=== PATIENT | female | born 1925 | race Caucasian/White ===

== ENCOUNTER 2016-06-13 11:11 | Emergency (ER) | payer OTHER, MEDICARE ==
[2016-06-13 11:57] VITALS: RESP 18
[2016-06-13] MEDS ORDERED: NS 500 ML IV ONE (12:27)
--- NOTE | 2016-06-13 12:31 | UCPHY ---
H & P Patient Type: Established Chief Complaint Nursing Narrative: c/o Cough/congestion x 1 wk Time Seen by Provider: 06/13/16 12:08 HPI/ROS: CHIEF COMPLAINT: Cough, congestion worsening over the last week HISTORY OF PRESENT ILLNESS: 89-year-old female presents complaining of worsening head cold, headache, cough, sputum production. Patient developed a sore throat a week ago. For several days she had nasal congestion and a runny nose with a sore throat. Over the last 2 days she has had increased nasal congestion, nasal discharge, headache, cough productive of sputum. No fever. No vomiting. No chest pain. No shortness of breath. No abdominal pain, nausea, vomiting. REVIEW OF SYSTEMS: Aside from elements discussed in the HPI, a comprehensive 10-point review of systems was reviewed and is negative. PAST MEDICAL HISTORY: DVT. Prior history of hypertension for which she no longer takes med secondary to losing a significant amount of weight. SOCIAL HISTORY: Just returned from [place]. VITAL SIGNS Reviewed by me. GENERAL: Pleasant, elderly female. Resting comfortably in no respiratory distress. HEENT: Atraumatic. Eyes: No icterus, no injection. TMs clear bilaterally. Mild sinus tenderness to percussion. Mouth: moist mucous membranes. No erythema or lesions. Neck: supple with no adenopathy. Negative Kernig's, negative Brudzinski's. No meningismus. Supple. LUNGS: Coarse breath sounds throughout. No wheezing or rhonchi. CARDIAC: Regular rate and rhythm, prominent systolic murmur. ABDOMEN: Soft, nontender, nondistended, bowel sounds normal. BACK: No CVA tenderness. EXTREMITIES: No trauma. No edema. Range of motion is normal throughout. NEURO: Alert and oriented, grossly nonfocal. SKIN: Warm and dry, no rash. PSYCHIATRIC: Normal mentation, no agitation. - Personal History Current Tetanus Diphtheria and Acellular Pertussis (TDAP): Yes - Medical/Surgical History Other PMH: Vericose veins. Blood clot lower leg. left knee replacement. back surgery for spinal stenosis. hammer toe surgery 2016. surgery to hands for contractures - Family History Significant Family History: No pertinent family hx - Social History Smoking Status: Never smoked Constitutional: Initial Vital Signs Temperature (C) 36.6 C 06/13/16 11:55 Heart Rate 84 06/13/16 11:55 Respiratory Rate 18 03/27/17 11:55 Blood Pressure 123/62 H 06/13/16 11:55 O2 Sat (%) 95 06/13/16 11:55 O2 Delivery Mode Room Air Allergies/Adverse Reactions: codeine Allergy (Verified 05/13/15 19:55) Home Medications: Medication Instructions Recorded Amoxicillin/Clavulanate Pot 875 mg PO BID #14 tab 06/13/16 [Augmentin 875 MG TAB (*)] Medical Decision Making ED Course/Re-evaluation: Patient's blood pressure fluctuated to systolic of 95. IV was placed. Patient received 500 cc of normal saline. 89-year-old female presenting with cold which has been worsening over the last 2 days. No history of fever. However patient's blood pressure shortly after arrival to urgent care was 95 systolic. Evaluation for sepsis was undertaken. No evidence of sepsis. Patient received normal saline. Blood pressure actually returned to its baseline which is somewhat hypertensive. Patient complains of a mild to moderate headache. Suspect this is related to significant sinus congestion. She was discharged with instructions regarding decongestants and was placed on Augmentin. She has with her family. She looks well, very conversant, sharp, and comfortable with the plan of going home. No chest pain. Differential Diagnosis: Differential diagnosis of the patient's symptom complex was considered including but not limited to viral upper respiratory infection, sinusitis, bronchitis, pharyngitis, pneumonia, lower respiratory infection, and bronchospasm. - Data Points Laboratory Results: Laboratory Results 06/13/16 13:00 06/13/16 13:00 06/13/16 06/13/16 06/13/16 13:00 13:00 13:00 WBC 4.59 10^3/uL 10^3/uL (3.80-9.50) RBC 4.90 10^6/uL 10^6/uL (4.18-5.33) Hgb 14.7 g/dL g/dL (12.6-16.3) Hct 44.2 % % (38.0-47.0) MCV 90.2 fL fL (81.5-99.8) MCH 30.0 pg pg (27.9-34.1) MCHC 33.3 g/dL g/dL (32.4-36.7) RDW 14.4 % % (11.5-15.2) Plt Count 189 10^3/uL 10^3/uL (150-400) MPV 9.8 fL fL (8.7-11.7) Neut % (Auto) 66.5 % % (39.3-74.2) Lymph % (Auto) 21.4 % % (15.0-45.0) [place] % (Auto) 10.5 % % (4.5-13.0) Eos % (Auto) 0.7 % % (0.6-7.6) Baso % (Auto) 0.7 % % (0.3-1.7) Nucleat RBC Rel Count 0.0 % % (0.0-0.2) Absolute Neuts (auto) 3.06 10^3/uL 10^3/uL (1.70-6.50) Absolute Lymphs (auto) 0.98 10^3/uL L 10^3/uL (1.00-3.00) Absolute Monos (auto) 0.48 10^3/uL 10^3/uL (0.30-0.80) Absolute Eos (auto) 0.03 10^3/uL 10^3/uL (0.03-0.40) Absolute Basos (auto) 0.03 10^3/uL 10^3/uL (0.02-0.10) Absolute Nucleated RBC 0.00 10^3/uL 10^3/uL (0-0.01) Immature Gran % 0.2 % % (0.0-1.1) Immature Gran # 0.01 10^3/uL 10^3/uL (0.00-0.10) VBG Lactic Acid 1.0 mmol/L mmol/L (0.7-2.1) Sodium 141 mEq/L mEq/L (134-144) Potassium 4.3 mEq/L mEq/L (3.5-5.2) Chloride 102 mEq/L mEq/L (97-110) Carbon Dioxide 24 mEq/l mEq/l (22-31) Anion Gap 15 mEq/L mEq/L (8-16) BUN 17 mg/dL mg/dL (7-23) Creatinine 0.8 mg/dL mg/dL (0.6-1.0) Estimated GFR > 60 Glucose 84 mg/dL mg/dL (70-100) Calcium 9.3 mg/dL mg/dL (8.5-10.4) Medications Given: Discontinued Medications Sodium Chloride (Ns) 500 mls @ 0 mls/hr IV ONCE ONE PRN Reason: As Directed Stop: 06/13/16 12:28 Last Admin: 06/13/16 13:19 Dose: 500 mls Departure - Departure Disposition: Home, Routine, Self-Care Clinical Impression: Bronchitis Upper respiratory infection Qualifiers: URI type: unspecified URI Qualified Code(s): J06.9 - Acute upper respiratory infection, unspecified Sinusitis Qualifiers: Sinusitis location: other Chronicity: acute Recurrence: non-recurrent Qualified Code(s): J01.80 - Other acute sinusitis Condition: Good Instructions: Sinusitis (ED), Acute Bronchitis (ED) Additional Instructions: Please take the antibiotics as directed. Augmentin 875 mg 2 times a day for 7 days. Drink plenty of fluid. Get plenty of rest. Follow up with her primary care physician if not improving as in the next several days. Referrals: Ada Bejarano MD [Primary Care Provider] - As per Instructions Prescriptions: Amoxicillin/Clavulanate Pot [Augmentin 875 MG TAB (*)] 875 mg PO BID #14 tab - PQRS PQRS Measurement: 134: Depression screening and followup, PRIME MD-PHQ2 (12 years and older) Over the last 2 weeks, how often have you been bothered by any of the following problems? 1. Feeling down, depressed, or hopeless? 2. Little interest or pleasure in doing things? Patient answered no to both 1 and 2 130: Documentation of medications. Reviewed all patient medications, doses, route and frequency. Patient takes no regular medications. 226: Do you smoke? No. 47: 65 and older: Advanced care planning. Patient designates surrogate decision maker as daughter. 51: 18 years old and older with diagnosis of COPD, spirometry performance. Patient has no history of COPD 52: 18 years old and older with COPD and symptoms of COPD or FEV1<60% predicted prescribed a B Agonist. Patient has no history of COPD
[2016-06-13 13:05] LABS: % IMMATURE GRANULYOCYTES 0.2 % (0.0-1.1); ABSOLUTE IMMATURE GRANULOCYTES 0.01 10^3/uL (0.00-0.10); ADD DIFF? NO; ADD MORPH? NO; ADD SCAN? NO; ATYPICAL LYMPHOCYTE FLAG 20 (0-99); FRAGMENT RBC FLAG 0 (0-99); HEMATOCRIT 44.2 % (38.0-47.0); HEMOGLOBIN 14.7 g/dL (12.6-16.3); LEFT SHIFT FLG 0 (0-99); LIPEMIA HEMOLYSIS FLAG 80 (0-99); MEAN CELL HEMOGLOBIN CONCENTR. 33.3 g/dL (32.4-36.7); MEAN CELL VOLUME 90.2 fL (81.5-99.8); MEAN PLATELET VOLUME 9.8 fL (8.7-11.7); PLATELET CLUMPS FLAG 0 (0-99); PLATELET COUNT 189 10^3/uL (150-400); RED CELL DISTRIBUTION WIDTH 14.4 % (11.5-15.2)
[2016-06-13 13:25] LABS: ANION GAP 15 mEq/L (8-16); CALCIUM 9.3 mg/dL (8.5-10.4); CARBON DIOXIDE 24 mEq/l (22-31); CHLORIDE 102 mEq/L (97-110); CREATININE 0.8 mg/dL (0.6-1.0); GLOMERULAR FILTRATION RATE > 60; GLUCOSE 84 mg/dL (70-100); POTASSIUM 4.3 mEq/L (3.5-5.2); SODIUM 141 mEq/L (134-144)
[2016-06-13 14:02] VITALS: BP 178/94; PULSE 81; TEMP 98.2; O2SAT 94
== END 2016-06-13 14:05 | disposition home or self-care (01) ==
LOC: CED 11:11
DX: J40 Bronchitis, not specified as acute or chronic (principal); J06.9 Acute upper respiratory infection, unspecified; J01.80 Other acute sinusitis
CPT/HCPCS: 71020-PO; 80048-PO; 83605-PO; 85025-PO; 96360-PO; 99214-PO; G0463-PO

== ENCOUNTER → 2016-07-04 | Outpatient (CLI) | payer OTHER, MEDICARE | LOC: BHCLAF 11:30 | PROVIDERS: ATTEND Internal Medicine | DX: I35.0 Nonrheumatic aortic (valve) stenosis (principal); I71.9 Aortic aneurysm of unspecified site, without rupture | CPT/HCPCS: 93306-PO ==

== ENCOUNTER → 2017-04-07 | Outpatient (CLI) | payer OTHER, MEDICARE | LOC: FIMAGING 14:35 | PROVIDERS: ATTEND Internal Medicine Interventional Cardiology | DX: J90 Pleural effusion, not elsewhere classified (principal) ==

== ENCOUNTER → 2017-04-17 | Outpatient (CLI) | payer OTHER, MEDICARE | LOC: BHFA 15:30 | PROVIDERS: ATTEND Internal Medicine Cardiovascular Disease | DX: I48.91 Unspecified atrial fibrillation (principal); I35.9 Nonrheumatic aortic valve disorder, unspecified ==

== ENCOUNTER 2017-07-17 13:05 | Day surgery (SDC) | payer OTHER, MEDICARE ==
[2017-07-17] MEDS ORDERED: ATROPINE SULFATE 1 MG/10 ML SYR ONE (13:24)
--- NOTE | 2017-07-17 13:29 | PDHPUP ---
History & Physical Update H&P update statement: This history and physical update is based on an assessment of the patient which was completed after admission or registration (within 24 hours), but prior to the surgery/procedure. H&P update: H&P reviewed & patient examined, no change in patient's condition since H&P completed
[2017-07-17] MEDS ORDERED: DOBUTamine 500 MG in D5W 250 ML IV ONE (13:30)
--- NOTE | 2017-07-17 15:17 | CPR ---
[f rep st] NONINVASIVE CARDIAC PROCEDURE REPORT DATE OF PROCEDURE: 07/17/2017 INDICATIONS FOR PROCEDURE: Shortness of breath, low output, severe . PROCEDURE: As per [facility] Dobutamine echo protocol, the patient was brought to [facility] where the patient's baseline echocardiographic images were obtained, which showed an EF of 65% with g lobal LVH. There was a heavily calcified aortic valve measuring at 0.9 cm2 with a peak velocity of 2 .7 cm/sec. The patient was started on a dobutamine infusion of 10 mcg/kg per minute which was increa sed by 10 mcg every 2 minutes to a total of 40 mcg/kg per minute. The patient's gradient increased f rom 2.7 cm/second to tops of 4.1 cm/sec at 40 mcg/kg per minute. The LV was hyperdynamic at this poi nt, the EF 70%. The patient's baseline EKG was atrial fibrillation with occasional pacing spikes and increased from a baseline heart rate 62-75. Blood pressure went from 160/80 to 175/90. At this wes e, the fusion was shut off. The patient tolerated the procedure well with no issues. IMPRESSION: Severe aortic stenosis confirmed by dobutamine infusion with a peak velocity 2.7 cm/sec, increasing to 4.1 cm/second. The patient's valve area at baseline was measured to be 0.9 cm2. Give n the patient's age, overall frailty, we will continue the patient's workup for potential transcathet er aortic valve replacement in the near future /[id number]/MODL
--- NOTE | 2017-07-24 16:24 | ECHO ---
[email or web address] [address] [address] Main: [phone] Fax: Transthoracic Echocardiogram Name: KATHY MUÑIZ MR#: [id number] Study Date: 07/17/2017 Study Time: 01:33 PM Date of : 1925 Age: 89 year(s) Height: 152.4 cm (60 in.) Weight: 63.96 kg (141 lb.) BSA: 1.61 m2 Gender: Female Examination: Stress Echo Indication: SOB/fatigue/hx pacer/atrial fibrillation Image Quality: Contrast: Requested by: Rashard Law BP: / Heart Rate: Rhythm: Indication: SOB/fatigue/hx pacer/atrial fibrillation Procedure Staff Joint Cutter Machine: Briseyda Young RDCS Reading Physician: Rashard Law MD Requesting Provider: Conclusions: Patient has severe by dobutamine stress echo. Please see dictated report for further details. Baseline - 2.76 m/s AV max PG 30mmHG AV mean PG 19mmHG 10 MCG - 3.18 m/s AV max PG 41mmHG AV mean PG 24mmHG 20 MCG 3.45 m/s AV max PG 48mmHG AV mean PG 27mmHG 30 MCG 3.84 m/s AV max PG 59mmHG AV mean PG 35mmHG 40 MCG 4.13 m/s AV max PG 68mmHG AV mean PG 40mmHG . Measurements: Chambers Valvular Assessment AV/MV Valvular Assessment TV/PV Normal Normal Normal Name Value Range Name Value Range Name Value Range LVOTd 2.1 cm 2.1 cm mm AV meanP mmHg ( - ) TR Vmax: 3.07 mm/s ( - ) SHYAM (VTI): 0.8 cm ( - ) TR PGmax: 38 mmHg ( - ) syst. PAP: 43 mmHg ( - ) Continued Measurements: Valvular Assessment TV/PV Name Value CVP (est.): 5 mmHg Findings: Left Ventricle: Normal global systolic LV function. Right Ventricle: There is a pacemaker lead noted in the right ventricle. Aortic Valve: Mild aortic valve regurgitation is present. Tricuspid Valve: Patient: KATHY MUÑIZ Study Date: 07/17/2017 Page 1 of 2 01:33 PM Mild tricuspid regurgitation is present. RVSP is 43mmHG.. Exam Comments: Patient has severe by dobutamine stress echo. Please see dictated report for further details. Baseline - 2.76 m/s AV max PG 30mmHG AV mean PG 19mmHG 10 MCG - 3.18 m/s AV max PG 41mmHG AV mean PG 24mmHG 20 MCG 3.45 m/s AV max PG 48mmHG AV mean PG 27mmHG 30 MCG 3.84 m/s AV max PG 59mmHG AV mean PG 35mmHG 40 MCG 4.13 m/s AV max PG 68mmHG AV mean PG 40mmHG . (No Signature Object) Patient: KATHY MUÑIZ Study Date: 07/17/2017 Page 2 of 2 01:33 PM [id number]
== END 2017-07-17 15:05 | disposition home or self-care (01) ==
LOC: FCATH 13:05 → EDSTATUS 13:30 → FCATH 15:05
PROVIDERS: ATTEND Internal Medicine Cardiovascular Disease
DX: I35.0 Nonrheumatic aortic (valve) stenosis (principal); I48.91 Unspecified atrial fibrillation; I10 Essential (primary) hypertension
CPT/HCPCS: J0461; J1250

== ENCOUNTER 2017-08-09 06:08 | Observation (INO) | payer OTHER, MEDICARE ==
[2017-08-09] MEDS ORDERED: DIAZEPAM 5 MG TAB PO ONE (06:13)
[2017-08-09] MEDS ORDERED: NS 1,000 ML IV ONE (06:13)
[2017-08-09] MEDS ORDERED: ASPIRIN EC 325 MG TAB PO ONE (06:13)
[2017-08-09] MEDS ORDERED: FAMOTIDINE 20 MG TAB PO ONE (06:13)
[2017-08-09] MEDS ORDERED: diphenhydrAMINE 25 MG CAP PO ONE (06:13)
--- NOTE | 2017-08-09 06:39 | CPEKG ---
Heart Rate: 71 RR Interval: 845 P-R Interval: 203 QRSD Interval: 98 QT Interval: 372 QTC Interval: 405 QRS Bradford: -36 T Wave Bradford: 105 EKG Severity - ABNORMAL ECG - EKG Impression: ATRIAL-PACED RHYTHM EKG Impression: LEFT AXIS DEVIATION EKG Impression: LVH WITH SECONDARY REPOLARIZATION ABNORMALITY Electronically Signed By: Everton Bernstein 10-Aug-2017 10:49:02
[2017-08-09] MEDS ORDERED: CLOPIDOGREL BISULFATE 75 MG TAB PO STA (06:43)
--- NOTE | 2017-08-09 06:46 | PDHPUP ---
History & Physical Update H&P update statement: This history and physical update is based on an assessment of the patient which was completed after admission or registration (within 24 hours), but prior to the surgery/procedure. H&P update: H&P reviewed & patient examined, no change in patient's condition since H&P completed, changes noted
--- NOTE | 2017-08-09 06:46 | PDPROPOC ---
Sedation Plan of Care Sedation Plan of Care: mental status noted, patient educated of risks, benefits , alternatives, patient can tolerate sedation ASA Classification: ASA 2 Planned drugs: fentanyl, midazolam Mallampati Score: Class 2 Mallampati Reference Image: Patient passed 3-3-2 rule?: Yes
[2017-08-09] MEDS ORDERED: IOPAMIDOL (ISOVUE-370) 150 ML BTL IV ONE ×3 (06:52→13:17)
[2017-08-09] MEDS ORDERED: LIDOCAINE 1% 300 MG/30 ML SDV ONE (06:52)
[2017-08-09 06:57] LABS: PLATELET COUNT 147 10^3/uL (150-400)
[2017-08-09 07:12] LABS: INR 1.03 (0.83-1.16); PROTIME(PATIENT) 13.7 SEC (12.0-15.0)
[2017-08-09] MEDS ORDERED: MIDAZOLAM 2 MG/2 ML VIAL ONE ×2 (07:13→11:33)
[2017-08-09] MEDS ORDERED: fentaNYL 100 MCG/2 ML INJ ONE ×2 (07:13→11:33)
[2017-08-09] MEDS ORDERED: hydrALAZINE 20 MG/ML VIAL ONE (07:58)
[2017-08-09] MEDS ORDERED: BIVALIRUDIN 250 MG/5 ML VIAL IV ONE (08:18)
[2017-08-09] MEDS ORDERED: NITROGLYCERIN 1,500 MCG/15 ML VIAL MISC ONE (08:30)
[2017-08-09] MEDS ORDERED: NITROGLYCERIN 0.4 MG BTL SL PRN (09:20)
[2017-08-09] MEDS ORDERED: ONDANSETRON 4 MG/2 ML VIAL IVP PRN (09:20)
[2017-08-09] MEDS ORDERED: ATROPINE SULFATE 1 MG/10 ML SYR IVP PRN (09:20)
[2017-08-09] MEDS ORDERED: traMADol 50 MG TAB PO ONE (10:00)
--- NOTE | 2017-08-09 10:13 | CPIP ---
[f rep st] INVASIVE CARDIAC PROCEDURE DATE OF PROCEDURE: 08/09/2017 INDICATION FOR PROCEDURE: Critical aortic stenosis, pre TAVR catheterization. PROCEDURE: 1. Nonselective left groin sheathogram. 2. 5-Liberian sheath left common femoral vein. 3. Cochran-Lisset catheter with a right heart catheterization. 4. Bilateral selective coronary angiography. 5. iFR of prox mid LAD. 6. iFR of prox mid left circumflex artery. Briefly, this is an 89-year-old female with history of critical aortic stenosis with evidence of low gradient low output as documented by dobutamine stress echo. The patient was evaluated by CT surgery and deemed to be a high-risk candidate for open AVR and was consented for left heart catheterization with anticipation of transfemoral TAVR. After informed consent was obtained, the patient was brought to [facility] where the patient's left groin was prepped in sterile fashion using lidocaine. A short 6-Liberian sheath to the left common femoral artery verified angiographically. A 5-Liberian sheath was placed in the left common femoral vein. Cochran-Lisset catheter was advanced through the 5-Liberian sheath. RA pressure was measured to be mean of 8, A-wave 10, V-wave 11, RV pressure systolic 4, diastolic 4 with an end of 11. PA pressure systolic ____, diastolic 16 with a mean of 26, wedge pressure was mean at 13, A-wave 16, V-wave 19, cardiac output was measured to be 3.1 by Calin with an index of 1.9. AO sat was 92%. PA sat was 63%. Cochran-Lisset catheter was then removed. At this time a JL4 catheter was advanced to the left coronary artery. Images of the left coronary artery revealed normal ostial left main. Distal left main appeared to have a calcified area of the takeoff of the ostial LAD and ostial left circumflex artery. Just distal to this takeoff of the LAD there was a small diagonal artery with a 70% ostial pinch followed by 50% mid LAD disease. There was a much larger diagonal artery coming off the midportion of the LAD which was healthy and free of disease. Distally, the LAD appeared to be healthy and free of disease. The left circumflex artery had what appeared to be some calcification in its ostium followed by an area of 60% disease in its proximal aspect. Distally, the circumflex terminated into an AV groove circ and a much larger marginal 1 artery which had mild 30% disease. After these images were obtained the JL4 catheter was removed. The JR4 catheter was advanced to the right coronary artery. Images of the right coronary artery revealed normal ostial RCA. There was heavy calcium in the proximal mid RCA which was widely patent. Distally, the RPD and RPL appeared to be widely patent as well. After the images were obtained, the JR4 catheter was removed. A pigtail catheter was advanced to the ascending aorta. Abdominal aortogram shows showed mildly aneurysmal distal ascending aorta. The bilateral common external and internal iliac arteries appear to be patent. The PERSONAL INVESTMENT ADVISER bilaterally appeared to be widely patent as well. After the images were obtained, the pigtail catheter was removed over the 0.035 wire. INTERVENTION REPORT: At this time Dr. Stiles from CT surgery was called over to look at the images with myself. Given the patient's overall extreme frailty as well as high risk nature for AVR and her refusal to have any open-heart surgery , we decided that we would proceed with interrogation of the coronary vessels with iFR and plan for potential PCI if needed. The patient had been administered 600 mg of Plavix as well as started on Angiomax bolus drip. The 6- Liberian sheath in the left groin was upsized to an 8-Liberian 25 cm sheath given the tortuosity in the iliac vessels on the left side. An EBU 3.5 guide catheter , 8-Liberian was advanced to the left coronary artery after being zeroed in the aorta. An iFR wire was then advanced and zeroed again proximal to the lesion in the left main. An IFR wire was then advanced through the ostia of the LAD into the mid LAD past both areas of concern in the LAD, iFR was obtained. iFR was 0.95. 200 mcg nitroglycerin was then administered IC and iFR was retaken and it was once again 0.97. The wire was then pulled back and placed into the left circumflex artery past the lesion, the ostial area as well as the proximal mid lesion and IFRT was once again obtained. This showed an iFR of 1.0 and 0.98 at separate instances. At this time, the wire was removed. The guide catheter was removed over an 0.035 wire. The left groin was replaced with short 8-Liberian sheath. The patient tolerated the procedure well with no complications. IMPRESSION: 1. Moderate coronary artery disease, namely in the form of 50% distal left main /50% ostial LAD with an additional 50% lesion in the mid LAD and 70% ostial diagonal artery. 2. 50% to 60% mid left circumflex artery with calcification of the left circumflex ostium. 3. Patent RCA 4. Mild pulmonary hypertension with reduced cardiac output. 5. Both LAD and LCX were interrogated iFR and found to be non-critical PLAN: The patient's coronary artery disease was verified by IFRT to be noncritical as her iFR was ranged from 0.95 to 1.0 in both the left circumflex artery and LAD. She does have significant disease of a small diagonal artery. However, given the small size of the vessel no intervention would be warranted on this area. At this time we will obtain CTA of the chest, abdomen, pelvis, and have the patient scheduled for a carotid ultrasound in anticipation for eventual transfemoral TAVR. /[id number]/MODL MTDD
[2017-08-09] MEDS ORDERED: traMADol 50 MG TAB PO PRN (15:16)
[2017-08-09] MEDS: METOPROLOL TARTRATE 50 MG TAB PO SCH (19:49)
--- NOTE | 2017-08-10 09:56 | ASDISCHSUM ---
Discharge Information Plan Status:Home with No Needs Medically Cleared to Leave:08/10/2017 Discharge Date:08/10/2017 CM D/C Disposition:Home, Routine, Self-Care ADT D/C Disposition:Home, Routine, Self-Care Projected Discharge Date:08/10/2017 Transportation at D/C:Family Discharge Delay Reason: Follow-Up Date:08/10/2017 Discharge Slot: Final Diagnosis: Placement Information Patient Contact Information Contact Name:CHELY Relationship:Daughter Address:[address] Work Phone: City:[place] Alternate Phone: State/Zip Code:[place] [address] Email: Financial Information Financial Class:Medicare Primary Plan Desc:MEDICARE OUTPATIENT Primary Plan Number:[id number] Secondary Plan Desc:[employer]/MDR SUPPLEMENT Secondary Plan Number:[id number] Assessment Information LACE LACE Length of stay for Answers: Less than 1 day current admission Acuity / Level of Answers: No Care: Did the patient have an inpatient admission? Comorbidities - select Answers: Coronary Artery Disease all that apply Other Notes: mild pulmonary HTN, # of Emergency department Answers: 0 visits in the last 6 months Score: 3 Date Signed: 08/10/2017 09:53 AM Electronically Signed By:Pura Zamudio RN Intervention Information
[2017-08-10] MEDS ORDERED: DIGOXIN 125 MCG TAB PO SCH (10:00)
[2017-08-10] MEDS: METOPROLOL TARTRATE 50 MG TAB PO SCH (10:03)
[2017-08-10 10:04] VITALS: BP 133/74
--- NOTE | 2017-08-10 12:38 | GDS ---
[f rep st] DISCHARGE SUMMARY DISCHARGE DIAGNOSES: 1. Severe aortic stenosis with low gradient and low output. 2. History of paroxysmal atrial fibrillation. 3. History of sick sinus syndrome status post permanent pacemaker. 4. History of supraventricular tachycardia. 5. History of chronic diastolic congestive heart failure. PROCEDURES: 1. 08/09/17, left heart catheterization, which showed moderate coronary artery disease, namely in th e form of 50% distal left main, 50% ostial LAD with an additional 50% lesion in the mid LAD, and a 70 % ostial diagonal artery stenosis, 50%-60% mid left circumflex artery calcification in the ostium, pa tent RCA. Both the LAD and circumflex were interrogated by iFR and were found to be noncritical. 2. 08/09/2017, abdomen and pelvis CTA, which showed minimally calcified widely patent aortoiliac ves sels. There was incidental left perinephric fluid collection, not associated with any changes in the adjacent renal cortex. Incidental subcentimeter cyst within the pancreas. 3. 08/09/2017, chest CT that shows moderate cardiomegaly with calcification of the aortic valvular l eaflets. Three-vessel coronary artery calcification. Normal caliber thoracic aorta. There is a sma ll right pleural effusion, which appears more loculated in comparison to previous chest radiograph. 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 There is a scattered thin-walled pulmonary parenchymal cyst and mild upper lobe reticular opacities. This may be suggestive of mild interstitial lung disease versus emp hysema. 4. 08/09/2017, carotid Dopplers, which showed moderate right and mild left carotid bulb, proximal in ternal carotid artery with atherosclerotic calcification with no evidence of significant stenosis. PHYSICIANS: Dr. Law. BRIEF HISTORY: Please see dictated H and P from Dr. Law for complete details. In brief, the pat ient is an 89-year-old female with a history of sick sinus syndrome status post permanent pacemaker, PAS, who has been noting worsening fatigue and dyspnea. Her echo showed very heavily calcified aorti c valve with only moderate gradient. On dobutamine stress echo, she was found to have severe with low gradient and low output. She is therefore being evaluated for TAVR. She has been turned down f or surgical aortic valve replacement. Her cardiac catheterization shows coronary artery disease, not needing intervention at this point. All her other pre TAVR studies were completed. On day of disch arge, the patient denies any significant groin pain. She has not been noting any chest pain or dyspn ea at rest. PHYSICAL EXAM: VITAL SIGNS: On day of discharge, blood pressure 133/74, heart rate of 73, respirati ons 14, O2 saturation 95% on room air, temp of 97.4 degrees Fahrenheit. GENERAL: She is a very plea juan elderly female in no apparent distress. HEENT: Normocephalic, atraumatic. Eyes are without sc leral icterus. HEART: Regular rate and rhythm with a harsh holosystolic murmur. LUNGS: Clear. EX TREMITIES: Left groin site with ecchymosis, but no hematoma, no bruit. She has 1+ PT and DP pulses bilaterally. CBC with WBC 6.38, hemoglobin 11, hematocrit 35.3, platelet count of 147. BMP with sodium 145, potas sium 4.5, chloride 110, CO2 23, BUN 36, creatinine 1.1, glucose 92. Total cholesterol of 181, LDL of 98, HDL of 61, triglycerides of 112. HOSPITAL COURSE BY PROBLEM: 1. Pre TAVR. Her testing has been completed. She will follow up with Dr. Law in 1 week's time. 2. Ycfi-zt-vujarjuy coronary and peripheral atherosclerosis. She should be medically managed for th is. Given her advanced age, we will defer adding statin or aspirin as she is already on Savaysa for stroke prophylaxis from her atrial fibrillation. RESULTS PENDING: None. DIET: Per previous. ACTIVITY: Groin precautions were reviewed. DISCHARGE MEDICATIONS: Please see med reconciliation. She may continue her home tramadol, Savaysa, multivitamin, metoprolol, hydrochlorothiazide, and digoxin. FOLLOWUP INSTRUCTIONS: 1. Groin precautions. 2. Follow up with Dr. Law in 1 week's time. /[id number]/MODL
== END 2017-08-10 10:29 | disposition home or self-care (01) ==
LOC: FCATH 06:08 → F2W 13:37
PROVIDERS: ADMIT Internal Medicine Cardiovascular Disease; ATTEND Internal Medicine Cardiovascular Disease
PROC: 4A1335C Monitoring of Arterial Flow, Coronary, Percutaneous Approach (ICD-10-PCS; principal; 2017-08-09)
PROC: B2111ZZ Fluoroscopy of Multiple Coronary Arteries using Low Osmolar Contrast (ICD-10-PCS; principal; 2017-08-09)
PROC: B2151ZZ Fluoroscopy of Left Heart using Low Osmolar Contrast (ICD-10-PCS; principal; 2017-08-09)
PROC: 4A023N6 Measurement of Cardiac Sampling and Pressure, Right Heart, Percutaneous Approach (ICD-10-PCS; principal; 2017-08-09)
DX: I35.0 Nonrheumatic aortic (valve) stenosis (principal); I25.10 Atherosclerotic heart disease of native coronary artery without angina pectoris; I27.20 Pulmonary hypertension, unspecified; I48.91 Unspecified atrial fibrillation; Z86.79 Personal history of other diseases of the circulatory system; Z95.0 Presence of cardiac pacemaker; Z66 Do not resuscitate
CPT/HCPCS: 71275; 74174; 75625; 93005; 93456; 93571; 93572; 93880; C1769; C1887; J0360; J0583; J1644; J2250; J3010; Q9967

== ENCOUNTER 2017-08-21 07:32 | Inpatient (IN) | payer OTHER, MEDICARE ==
[2017-08-21] MEDS ORDERED: NS 1,000 ML IV ONE (07:36)
[2017-08-21] MEDS ORDERED: VANCOMYCIN HCL/NORMAL SALINE 250 ML IV ONE (08:30)
[2017-08-21] MEDS ORDERED: IOPAMIDOL (ISOVUE-370) 150 ML BTL IV ONE (08:46)
--- NOTE | 2017-08-21 09:00 | PDPROPOC ---
Sedation Plan of Care Sedation Plan of Care: mental status noted, patient educated of risks, benefits , alternatives, patient can tolerate sedation ASA Classification: ASA 2 Planned drugs: other Mallampati Score: Class 2 Mallampati Reference Image: Patient passed 3-3-2 rule?: Yes
--- NOTE | 2017-08-21 09:29 | PDANEPAE ---
ANE History of Present Illness 89 yo for tavr ANE Past Medical History - Cardiovascular History Hx Hypertension: Yes Hx Arrhythmias: Yes Hx Coronary Artery / Peripheral Vascular Disease: Yes Hx CHF / Valvular Disease: Yes - Pulmonary History Hx Oxygen in Use at Home: No Hx Sleep Apnea: No ANE Review of Systems Review of Systems: - Exercise capacity METS (RN): 3 METS ANE Patient History - Allergies Allergies/Adverse Reactions: diphenhydramine [From Benadryl] Allergy (Intermediate, Verified 08/09/17 14:53) anxiety and restless legs codeine Allergy (Verified 08/02/17 09:58) Hives levofloxacin Allergy (Verified 08/02/17 09:58) "TENDONITIS" Penicillins Allergy (Verified 08/02/17 09:58) tetanus and diphtheria toxoids Allergy (Verified 08/02/17 09:58) OPIOIDS Allergy (Uncoded 08/02/17 09:58) "DIZZINESS" - Home Medications Home medications: home medication list seen and reviewed Home Medications: Digoxin [Lanoxin 125 mcg (RX)] 125 mcg PO DAILY10 08/02/17 [Last Taken Unknown] Edoxaban Tosylate [Savaysa] 30 mg PO DAILY 08/02/17 [Last Taken Unknown] Herbals/Supplements -Info Only 1 ea PO DAILY 08/02/17 [Last Taken Unknown] Hydrochlorothiazide [HCTZ (*)] 25 mg PO DAILY 08/02/17 [Last Taken Unknown] Metoprolol Tartrate [Lopressor 50 mg (*)] 50 mg PO BID 08/02/17 [Last Taken Unknown] Multivitamins [Multivitamin (*)] 1 each PO DAILY 08/02/17 [Last Taken Unknown] traMADol [Ultram 50 mg (*)] 50 mg PO Q6HRS PRN 08/02/17 [Last Taken Unknown] - Smoking Hx Smoking Status: Never smoked ANE Physical Exam - Airway Mallampati Score: Class 2 Mouth exam: normal dental/mouth exam - Pulmonary Pulmonary: no respiratory distress - Cardiovascular Cardiovascular: regular rate and rhythym - ASA Status ASA Status: III ANE Anesthesia Plan Anesthesia Plan: general endotracheal anesthesia
[2017-08-21] MEDS ORDERED: fentaNYL 100 MCG/2 ML INJ ONE ×2 (09:37)
[2017-08-21] MEDS ORDERED: PROPOFOL/EMULSION 500 MG/50 ML BOTTLE IV ONE (09:37)
[2017-08-21] MEDS ORDERED: ROCURONIUM 100 MG/10 ML VIAL ONE (09:38)
[2017-08-21] MEDS ORDERED: HEPARIN 10,000 UNIT/10 ML MDV (1,000 UNIT/ML) ONE (09:41)
[2017-08-21] MEDS ORDERED: PROTAMINE SULFATE 50 MG/5 ML VIAL IVP ONE (10:58)
[2017-08-21] MEDS ORDERED: SUGAMMADEX SODIUM 200 MG/2 ML VIAL IVP ONE (11:07)
[2017-08-21] MEDS ORDERED: HYDROmorphONE/DILAUDID 1 MG/ML INJ IVP PRN (11:09)
[2017-08-21] MEDS ORDERED: oxyCODONE IR 5 MG TAB PO PRN (11:09)
[2017-08-21] MEDS ORDERED: ONDANSETRON 4 MG/2 ML VIAL IVP PRN (11:09)
[2017-08-21] MEDS ORDERED: ONDANSETRON DISINTEGRATING 4 MG TAB PO PRN (11:09)
[2017-08-21] MEDS ORDERED: ATROPINE SULFATE 1 MG/10 ML SYR IVP PRN (11:09)
[2017-08-21] MEDS ORDERED: IBUPROFEN 800 MG TAB PO PRN (11:09)
[2017-08-21] MEDS ORDERED: hydrALAZINE 20 MG/ML VIAL IVP PRN (11:09)
--- NOTE | 2017-08-21 11:37 | POSTANESTH ---
Post Anesthetic Evaluation Cardiovascular Status: Normal, Stable Respiratory Status: Tx Decrease in SpO2 Level of Consciousness/Mental Status: Can Participate in Eval Pain Control: Adequate, Prn Tx Ordered Nausea/Vomiting Control: Adequate, Prn Tx Ordered Complications Possibly Related to Anesthesia: None Noted
--- NOTE | 2017-08-21 11:42 | CPIP ---
[f rep st] INVASIVE CARDIAC PROCEDURE DATE OF PROCEDURE: 08/21/2017 PROCEDURE INDICATION: Critical aortic stenosis, high risk for open AVR. CO-SURGEONS: Dr. Rell Stiles, Dr. Shantal Merino, Dr. Joo Virgen. PROCEDURE: 1. 6-Italian sheath left common femoral artery verified angiographically. 6-Italian sheath right comm on femoral artery verified angiographically. 6-Italian sheath left common femoral vein with temporary pacemaker wire placed in the right ventricle. 2. Pigtail catheter placed in aortic root. 3. Aortic root angiography. 4. Left heart catheterization. 5. Balloon aortic valvuloplasty using Tyshak 20 x 60 balloon. 6. Upsizing of right common femoral sheath to 16-Italian Idamay sheath after triple Perclose placements . Repeat placement of Medtronic CoreValve Evolut PRO 29 mm valve by the transfemoral route. HISTORY: Briefly, this is an 89-year-old female with history of critical aortic stenosis, worsening shortness of breath. The patient had been evaluated by CT surgery and deemed to be a suitable candid ate for transfemoral TAVR. After informed consent was obtained the patient was brought to [facility] where the patient was electively intubated. RACHEL performed by Dr. Shantal Merino. The patient was administered 2 g of Ancef prior to the case and a total of 10,000 heparin during the case. A 6-Italian sheath santos amado in left common femoral vein with temporary pacemaker wire placed in the right ventricle. 6-Frenc h sheath left common femoral artery with a pigtail catheter placed in the aortic root. 6-Italian adrian th placed in right common femoral artery, which was then upsized to a 16-Italian sheath after triple P erclose placements. The valve was crossed and AL1 catheter and a straight stiff Glidewire switched o ut for a pigtail catheter switched out for a Confida wire. Balloon aortic valvuloplasty was then com menced with a 20 x 60 Tyshak balloon at a pacing rate of 180 beats per minute. After this was perfor med the balloon was removed. We then proceeded with placement of Medtronic CoreValve Evolut Pro 29 m m valve by the transfemoral root. This was deployed successfully with trivial perivalvular leak note d. After deployment, the wire was pulled back. The sheath was then removed with a triple Perclose p lacement and 8-Italian Angio-Seal. The left groin was closed with an 8-Italian Angio-seal. The left g roin was closed with manual pressure and venous sheath. The patient tolerated the procedure well. N o complications. IMPRESSION: Successful placement of Medtronic Evolut Pro 29 mm valve by the transfemoral route. PLAN: The patient will be admitted to ICU. Further orders following clinical correlation. /[id number]/MODL
--- NOTE | 2017-08-21 11:57 | GOP ---
[f rep st] OPERATIVE REPORT DATE OF OPERATION: 08/21/2017 SURGEON: Rell Stiles DO NEUROSURGEON: Dr. Law, Dr. Stiles, and Dr. Merino. ANESTHESIOLOGIST: Dr. Virgen. PREOPERATIVE DIAGNOSIS: Critical aortic stenosis. POSTOPERATIVE DIAGNOSIS: Critical aortic stenosis. PROCEDURE PERFORMED: Deployment of Evolut Pro aortic valve via the right common femoral artery. FINDINGS: DESCRIPTION OF PROCEDURE: After catheter placement across the aortic valve, a Kofidis wire was place d by Dr. Law. Please see separate dictations. I then advanced an Evolut Pro CoreValve across the aortic valve post dilation and under fluoroscopic and echo guidance, deployed the valve successfully with trace aortic insufficiency, good valvular fun ction and excellent placement approximately 3-4 mm below the anulus. This was then pulled back into the descending thoracic aorta. Echo confirmed the presence. Please see Dr. Law's separate dicta tion. I then removed the sheath and catheter from the right groin, after which Dr. Law closed [facility] percutaneous techniques. /[id number]/MODL
[2017-08-21] MEDS: ACETAMINOPHEN 325 MG TAB PO SCH ×3 (12:00→20:21)
[2017-08-21] MEDS: traMADol 50 MG TAB PO PRN ×2 (13:00→20:10)
--- NOTE | 2017-08-21 15:37 | PDMN ---
Medical Necessity Medical necessity: IP per [facility] for TAVR cpt 93289
[2017-08-21] MEDS: METOPROLOL TARTRATE 50 MG TAB PO SCH (20:09)
[2017-08-22 06:11] LABS: PLATELET COUNT 126 10^3/uL (150-400)
[2017-08-22 06:15] LABS: INR 1.08 (0.83-1.16); PROTIME(PATIENT) 14.2 SEC (12.0-15.0)
[2017-08-22] MEDS: ACETAMINOPHEN 325 MG TAB PO SCH ×3 (06:19→14:47)
--- NOTE | 2017-08-22 07:08 | PDCARPN ---
Cardiology Progress Note Chief Complaint: SOB Assessment/Plan: Assessment: s/p TAVR AF Plan: 08/22/17 07:07 doing well OOB IS transfer to floor hold AC tx until 08/23 Subjective: doing well Reviewed/Discussed With: multidisciplinary team Time Spent with Patient: greater than 25 minutes Time Spent with Patient: Greater than 25 minutes spent on this patients care, greater than 50% of time spent counseling, educating, and coordinating care regarding the above mentioned plan. Objective: Vital Signs (8 Hrs) Temp Pulse Resp BP Pulse Ox 08/22/17 06:00 60 12 107/49 L 92 08/22/17 04:00 36.3 C 60 14 107/47 L 91 L 08/22/17 02:00 66 16 122/54 H 97 08/22/17 00:00 67 16 118/49 L 96 Intake/Output (24 Hrs) 08/21/17 08/22/17 08/23/17 05:59 05:59 05:59 Intake Total 1700 Balance 1700 Intake: Oral (ml) 700 IV Intake (ml) 1000 Other: Weight 62.6 kg Number of Voids Toilet 1 Number of Stools Toilet 0 Result Diagrams: 08/22/17 05:50 08/22/17 05:50 - Physical Exam Constitutional: healthy appearing Eyes: PERRL Ears, Nose, Mouth, Throat: moist mucous membranes Cardiovascular: regular rate and rhythm Peripheral Pulses: 1+: femoral (R), femoral (L) Respiratory: clear to auscultate bilat Gastrointestinal: normoactive bowel sounds Genitourinary: no suprapubic tenderness Skin: no rashes Musculoskeletal: no muscular tenderness Neurologic: AAOx3 Psychiatric: cooperative ICD10 Worksheet Patient Problems: Problems Problem Status Onset Aortic stenosis Acute
--- NOTE | 2017-08-22 08:46 | CPEKG ---
Heart Rate: 64 RR Interval: 938 P-R Interval: 218 QRSD Interval: 82 QT Interval: 360 QTC Interval: 372 P Jacumba: 3 QRS Jacumba: -25 T Wave Jacumba: 155 EKG Severity - ABNORMAL ECG - EKG Impression: ATRIAL-PACED COMPLEXES EKG Impression: LEFT AXIS DEVIATION EKG Impression: PROBABLE LVH WITH SECONDARY REPOL ABNRM EKG Impression: COMPARED WITH 08/09/2017 NO SIGNIFICANT CHANGE Electronically Signed By: Shantal Merino 22-Aug-2017 20:25:54
[2017-08-22] MEDS ORDERED: EDOXABAN TOSYLATE 30 MG PO SCH (09:00)
[2017-08-22] MEDS: METOPROLOL TARTRATE 50 MG TAB PO SCH ×2 (09:04→20:22)
[2017-08-22] MEDS: HYDROCHLOROTHIAZIDE 25 MG TAB PO SCH (09:04)
[2017-08-22] MEDS: DIGOXIN 125 MCG TAB PO SCH (09:04)
--- NOTE | 2017-08-22 09:17 | ASMTCMCOM ---
CM Note CM Note Notes: 89yr old female admitted for critical aortic stenosis. Had a TAVR procedure. Lives with her daughter Juanita. Has not been evaluated by therapies, may not have discharge needs. Date Signed: 08/22/2017 09:16 AM Electronically Signed By:Lachelle Feliciano LCSW
--- NOTE | 2017-08-22 09:19 | ECHO ---
[email or web address] [place] [id number] Main: [phone] Fax: Transesophageal Echocardiography Name: KATHY MUÑIZ MR#: [id number] Study Date: 08/21/2017 Study Time: 09:52 AM Date of : 1925 Age: 89 year(s) Height: ( ) Weight: ( ) BSA: Gender: Female Examination: RACHEL Indication: TAVR Image Quality: Adequate Contrast: Requested by: Rashard Law Heart Rate: Rhythm: BP: / Procedure Staff Salvage Winder And Inspector: Tanya Orona [facility] Reading Physician: Shantal Merino MD Requesting Provider: Rashard Law RACHEL Exam Details Patient Consent: Risks, alternatives of procedure explained to patient, informed consent obtained. Conclusions: Normal global systolic LV function. No regional wall motion abnormality. Normal size right ventricle. Normal RV function. There is a pacemaker lead noted in the right ventricle. Moderate mitral valve regurgitation is present. The previous mean aortic valve gradient was 40 mmhg. The peak velocity was 4.1 cm/s with an SHYAM deployment was a mean of 5 mmhg and a peak velocity of 1.5 cm/s. The aortic valve area post TAVR mild perivavluar regurgitation post TAVR. No pericardial effusion. Measurements: Chambers Valvular Assessment AV/MV Valvular Assessment TV/PV Normal Normal Normal Name Value Range Name Value Range Name Value Range LVOTd 1.9 cm 1.9 cm mm AV Vmax: 1.47 m/s (1 m/s-1.7 m/s) AV maxP mmHg ( - ) AV meanP mmHg ( - ) LVOT Vmax: 0.90 m/s (0.7 m/s-1.1 m/s) SHYAM (Vmax): 1.7 cm2 ( - ) SHYAM (VTI): 1.8 cm ( - ) Patient: KATHY MUÑIZ Study Date: 08/21/2017 Page 1 of 2 09:52 AM Additional Measurements: Findings: Left Ventricle: Normal size left ventricle. Normal global systolic LV function. No regional wall motion abnormality. Unable to assess diastolic dysfunction. Left ventricular hypertrophy. Right Ventricle: Normal size right ventricle. Normal RV function. There is a pacemaker lead noted in the right ventricle. Left Atrium: The left atrium is normal in size. Right Atrium: The right atrium is normal in size. Mitral Valve: The mitral valve is normal in appearance and function. Moderate mitral valve regurgitation is present. No mitral stenosis is present. Aortic Valve: The previous mean aortic valve gradient was 40 mmhg. The peak velocity was 4.1 cm/s with an SHYAM deployment was a mean of 5 mmhg and a peak velocity of 1.5 cm/s. The aortic valve area post TAVR mild perivavluar regurgitation post TAVR. Tricuspid Valve: The tricuspid valve is normal in appearance and function. Mild to moderate tricuspid valve regurgitation. Pulmonic Valve: The pulmonic valve is normal in appearance and function. There is no pulmonic regurgitation seen. Aorta: The aorta is normal. Pericardium: No pericardial effusion. Respiratory variation is less than 25%. No pleural effusion. l1n (No Signature Object) Patient: KATHY MUÑIZ Study Date: 08/21/2017 Page 2 of 2 09:52 AM [id number]
--- NOTE | 2017-08-22 09:59 | ECHO ---
[email or web address] [address] [address] Main: [phone] Fax: Transthoracic Echocardiogram Name: KATHY MUÑIZ MR#: [id number] Study Date: 08/22/2017 Study Time: 07:36 AM Date of : 1925 Age: 89 year(s) Height: 149.9 cm (59 in.) Weight: 62.6 kg (138 lb.) BSA: 1.57 m2 Gender: Female Examination: Echo Indication: Post TAVR Image Quality: Adequate Contrast: Requested by: Rashard Law BP: 107 mmHg/49 mmHg Heart Rate: Rhythm: Indication: Post TAVR Procedure Staff Gas Check Pad Maker: Tanya Orona RDCS Reading Physician: Rashard Law MD Requesting Provider: Conclusions: Normal global systolic LV function. EF is 62 %. There is a pacemaker lead noted in the right ventricle. Mild mitral valve regurgitation is present. Post TAVR. Normal functioning aortic valve prosthesis. Trivial aortic regurgitation and perivalvular leak. Moderate to severe tricuspid valve regurgitation. Right ventricular systolic pressure measures 57mmHg. Measurements: Chambers Valvular Assessment AV/MV Valvular Assessment TV/PV Normal Normal Normal Name Value Range Name Value Range Name Value Range Ao Twila (2D): 2.3 cm (1.4 cm-2.6 AV Vmax: 2.10 m/s (1 m/s-1.7 TR Vmax: 3.43 mm/s ( - ) cm) m/s) TR PGmax: 47 mmHg ( - ) IVSd (2D): 1.1 cm (0.6 cm-1.1 AV maxP mmHg ( - ) syst. PAP: 57 mmHg ( - ) cm) AV meanP mmHg ( - ) PV Vmax: 0.79 m/s (0.6 m/s-0.9 LVDd (2D): 4.7 cm (3.9 cm-5.3 SHYAM (VTI): 1.3 cm ( - ) m/s) cm) AR (PHT): 316 ms ( - ) PV PGmax: 2 mmHg ( - ) LVDs (2D): 3.1 cm (2.1 cm-4 MV E Vmax: 0.88 m/s ( - ) cm) MV A Vmax: 0.75 m/s ( - ) LVPWd (2D): 1.2 cm ( - ) MV E/A: 1.17 ( - ) LVOTd 1.9 cm 1.9 cm mm MV PHT: 0.062 s ( - ) LVEF (BP): 62 % (>=55 %) MVA (PHT): 3.5 s ( - ) RVDd(2D): 2.8 cm (1.9 cm-3.8 cmmm) Continued Measurements: Chambers Valvular Assessment AV/MV Valvular Assessment TV/PV Patient: KATHY MUÑIZ Study Date: 08/22/2017 Page 1 of 2 07:36 AM Name Value Name Value Name Value LADs: 3.3 cm MV DecTime: 222 m/s CVP (est.): 10 mmHg LADs Lon.5 cm MV E' Septal: 0.06 m/s LA Area: 30.7 cm2 MV E/E' Septal: 14.20 LA Volume: 108 ml MV E/E' Lateral: 10.10 LA Volume Index: 68.8 ml/m2 AR Vmax: 0.98 cm/s RA Area: 34.1 cm2 Additional Vessels Name Value Ao Ascendin.6 cm Inferior Vena Cava: 2.1 cm Findings: Left Ventricle: Normal size left ventricle. Borderline concentric LV hypertrophy. Normal global systolic LV function. EF is 62 %. No regional wall motion abnormality. Normal diastolic LV function. Right Ventricle: Normal size right ventricle. Normal RV function. There is a pacemaker lead noted in the right ventricle. Left Atrium: The left atrium is severely dilated. Right Atrium: The right atrium is normal in size. Mitral Valve: The mitral valve is normal in appearance and function. Mild mitral valve regurgitation is present. No mitral stenosis is present. Aortic Valve: Post TAVR. Normal functioning aortic valve prosthesis. The prosthetic aortic valve is normal. The orifice motion of the prosthetic aortic valve is normal. Trivial aortic regurgitation and perivalvular leak. Tricuspid Valve: The tricuspid valve is normal in appearance and function. Moderate to severe tricuspid valve regurgitation. The pulmonary artery pressure is moderately increased. Right ventricular systolic pressure measures 57mmHg. Pulmonic Valve: The pulmonic valve is normal in appearance and function. Aorta: The aorta is normal. Normal size aortic root measuring 2.3 cm. Normal size ascending aorta measuring 2.6 cm. IVC: The IVC is dilated. Pericardium: Trivial pericardial effusion. No pleural effusion. (No Signature Object) Patient: KATHY MUÑIZ Study Date: 08/22/2017 Page 2 of 2 07:36 AM [id number]
[2017-08-22] MEDS: traMADol 50 MG TAB PO PRN (20:24)
[2017-08-23 04:31] LABS: PLATELET COUNT 107 10^3/uL (150-400)
[2017-08-23 04:41] LABS: INR 1.06 (0.83-1.16)
[2017-08-23] MEDS: ACETAMINOPHEN 325 MG TAB PO SCH ×2 (06:19)
--- NOTE | 2017-08-23 07:18 | PDCARPN ---
Cardiology Progress Note Chief Complaint: SOB Assessment/Plan: Assessment: s/p TAVR AF Plan: 08/22/17 07:07 doing well OOB IS transfer to floor hold AC tx until 08/2308/23/17 07:17 doing well d/c home today f/u in 1 week Subjective: doing well Reviewed/Discussed With: multidisciplinary team Time Spent with Patient: greater than 25 minutes Time Spent with Patient: Greater than 25 minutes spent on this patients care, greater than 50% of time spent counseling, educating, and coordinating care regarding the above mentioned plan. Objective: Vital Signs (8 Hrs) Temp Pulse Resp BP Pulse Ox 08/23/17 04:00 36.8 C 76 16 127/64 H 95 08/22/17 23:37 36.6 C 61 16 123/61 H 99 Intake/Output (24 Hrs) 08/22/17 08/23/17 08/24/17 05:59 05:59 05:59 Intake Total 1700 500 Balance 1700 500 Intake: Oral (ml) 700 500 IV Intake (ml) 1000 Other: Weight 62.6 kg 64.1 kg Number of Voids Toilet 1 2 Number of Stools Toilet 0 Result Diagrams: 08/23/17 04:08 08/23/17 04:08 - Physical Exam Constitutional: healthy appearing Eyes: PERRL Ears, Nose, Mouth, Throat: moist mucous membranes Cardiovascular: regular rate and rhythm, systolic murmur Peripheral Pulses: 1+: femoral (R), femoral (L) Respiratory: clear to auscultate bilat Gastrointestinal: normoactive bowel sounds Genitourinary: no suprapubic tenderness Skin: no rashes Musculoskeletal: no muscular tenderness Neurologic: AAOx3 ICD10 Worksheet Patient Problems: Problems Problem Status Onset Aortic stenosis Acute
--- NOTE | 2017-08-23 07:43 | GDS ---
[f rep st] DISCHARGE SUMMARY DISCHARGE DIAGNOSIS: Aortic stenosis. HOSPITAL COURSE: Briefly, this is an 89-year-old female who had history of symptomatic severe aortic stenosis. The patient was deemed to be a suitable candidate for transfemoral TAVR. The patient und erwent successful transfemoral TAVR on 08/21/2017, with Medtronic CoreValve Evolut PRO. Patient with 29 mm valve. The patient did very well post procedure. Echocardiogram postprocedure shows normal e jection fraction with normal functioning valve. The patient's hemoglobin did drop slightly to 9.3, h owever, she is clinically stable. She will be restarted on her home medications this morning shane Funez. She will follow up in the office in 1 week's time. /[id number]/MODL
[2017-08-23] MEDS: HYDROCHLOROTHIAZIDE 25 MG TAB PO SCH (09:20)
[2017-08-23] MEDS: METOPROLOL TARTRATE 50 MG TAB PO SCH (09:20)
[2017-08-23] MEDS: DIGOXIN 125 MCG TAB PO SCH (09:20)
--- NOTE | 2017-08-23 09:22 | ASDISCHSUM ---
Discharge Information Plan Status:Home with No Needs Medically Cleared to Leave:08/23/2017 Discharge Date:08/23/2017 CM D/C Disposition:Home, Routine, Self-Care ADT D/C Disposition:Home, Routine, Self-Care Projected Discharge Date:08/23/2017 Transportation at D/C:Family Discharge Delay Reason: Follow-Up Date:08/23/2017 Discharge Slot: Final Diagnosis:Aortic stenosis Placement Information Patient Contact Information Contact Name:CHELY Relationship:Daughter Address:[address] Work Phone: City:[place] Alternate Phone: [facility]/Zip Code:[place] [address] Email: Financial Information Financial Class:Medicare Primary Plan Desc:MEDICARE INPATIENT Primary Plan Number:[id number] Secondary Plan Desc:[employer]/MDR SUPPLEMENT Secondary Plan Number:[id number] Assessment Information LACE LACE Length of stay for Answers: 1 day current admission Acuity / Level of Answers: Yes Care: Did the patient have an inpatient admission? Comorbidities - select Answers: Congestive heart failure all that apply Coronary Artery Disease # of Emergency department Answers: 1-2 visits in the last 6 months Score: 9 Date Signed: 08/23/2017 09:19 AM Electronically Signed By:Pura Zamudio RN [facility] Progress Note CM Torin CM Note Notes: 89yr old female admitted for critical aortic stenosis. Had a TAVR procedure. Lives with her daughter Juanita. Has not been evaluated by therapies, may not have discharge needs. Date Signed: 08/22/2017 09:16 AM Electronically Signed By:Lachelle Feliciano LCSW Case Management Discharge Plan Note Case Management Discharge Discharge Order Complete? Answers: Yes Patient to Obtain Answers: via Family Medications Transportation Arranged Answers: Family/Friends Discharge Comments Notes: 08/23/2017 Case Management Note Pt will discharge home with family support. She has a follow up appointment with Dr. Law in a week. There are no further case management needs identified. Date Signed: 08/23/2017 09:21 AM Electronically Signed By:Pura Zamudio RN Intervention Information
[2017-08-23] MEDS: traMADol 50 MG TAB PO PRN (09:49)
[2017-08-23 09:53] VITALS: BP 122/79
== END 2017-08-23 11:50 | disposition home or self-care (01) | DRG 267 ==
LOC: FCATH 07:32 → F2N 11:09 → F2W 08-22 10:21
PROVIDERS: ADMIT Internal Medicine Cardiovascular Disease; ATTEND Internal Medicine Cardiovascular Disease
PROC: B3101ZZ Fluoroscopy of Thoracic Aorta using Low Osmolar Contrast (ICD-10-PCS; principal; 2017-08-21)
PROC: 02RF38Z Replacement of Aortic Valve with Zooplastic Tissue, Percutaneous Approach (ICD-10-PCS; principal; 2017-08-21)
DX: I35.0 Nonrheumatic aortic (valve) stenosis (principal); Z00.6 Encounter for examination for normal comparison and control in clinical research program; I10 Essential (primary) hypertension; I48.91 Unspecified atrial fibrillation; Z95.0 Presence of cardiac pacemaker; Z86.718 Personal history of other venous thrombosis and embolism; Z96.652 Presence of left artificial knee joint; Z98.1 Arthrodesis status
CPT/HCPCS: C1760; C1769; C1894; J1644; J2704; J2720; J3010; J3370; Q9967